=== PATIENT | male | born 1965 | race Two or more races ===

== ENCOUNTER 2017-12-04 15:56 | Emergency (ER) | payer OTHER ==
[2017-12-04 16:04] VITALS: BP 153/88; PULSE 81; TEMP 98; BMI 38.6
--- NOTE | 2017-12-04 16:07 | PDOC ---
Rapid Medical Evaluation Chief Complaint: Injury Time Seen by Provider: 12/04/17 16:05 Medical Evaluation: Allergies Allergy/AdvReac Type Severity Reaction Status Date / Time Penicillins Allergy Verified 12/04/17 15:59 Vital Signs Temp Pulse Resp BP Pulse Ox 98.0 F 81 18 153/88 100 12/04/17 15:59 12/04/17 15:59 12/04/17 15:59 12/04/17 15:59 12/04/17 15:59 12/04/17 16:06 Pt presents to the ED with complaints of: SLIP AND FELL AT WORK, NO HEAD INJURY , ambulatory at the scene, + mild left hip pain On brief exam: large contusion/hematoma over left meeks. FROM of left foot Pt ordered for: tib/fib xray Pt to proceed to the ED Discharge Disposition - Diagnosis Left leg pain - Referrals - Patient Instructions - Post Discharge Activity
[2017-12-04] MEDS ORDERED: BACITRACIN 15 GM TUBE TOPICAL OINTMENT ONE (17:39)
[2017-12-04] MEDS ORDERED: KETOROLAC TROMETHAMINE 60 MG/2 ML VIAL IM ONE (17:39)
--- NOTE | 2017-12-04 17:39 | PDOC ---
History of Present Illness - General Chief Complaint: Injury Stated Complaint: LT LEG INJURY Time Seen by Provider: 12/04/17 16:05 History Source: Patient Exam Limitations: No Limitations - History of Present Illness Initial Comments: CHIEF COMPLAINT: 52 y/o afebrile male with no significant PMH c/o left leg and hip pain s/p slip and fall. HISTORY OF PRESENT ILLNESS: The patient was at work when he slipped on stairs and fell, his left meeks hitting the sharp bottom of the door frame. He states he was able to walk but with pain. He denies head trauma, neck pain, LOC, CP, SOB, dizziness, n/v/d, numbness/tingling in LEs. Vital signs on arrival are within normal limits. REVIEW OF SYSTEMS: GENERAL/CONSTITUTIONAL: No fever/chills. No weakness. No weight change. MUSCULOSKELETAL: +left lower leg and left hip pain. No neck or back pain. SKIN: No rash or easy bruising. NEUROLOGIC: No headache, vertigo, loss of consciousness, or loss of sensation. PHYSICAL EXAM: VITAL_SIGNS: within normal limits GENERAL_APPEARANCE: alert, cooperative, mild obvious discomfort. MENTAL_STATUS: speech clear, oriented X 3, responds appropriately to questions. NEURO: motor intact and sensory intact in injured extremity. EXTREMITIES: Distal anterior left tibia with 2 open abrasions, each 2cm x 1cm. Moderate swelling and TTP of left anterior tibia. Full ROM of left toes, ankle and knee. No pain with palpation of left knee or tibial plataeu. Minimal TTP of left hip joint. SKIN: warm, dry, good color. Past History - Past Medical History Allergies/Adverse Reactions: Allergies Allergy/AdvReac Type Severity Reaction Status Date / Time Penicillins Allergy Verified 12/04/17 15:59 Home Medications: Ambulatory Orders Ibuprofen 800 mg PO Q8H #20 tablet 12/04/17 Asthma: Yes COPD: No - Suicide/Smoking/Psychosocial Hx Smoking History: Never smoked Have you smoked in the past 12 months: No Information on smoking cessation initiated: No Hx Alcohol Use: No Drug/Substance Use Hx: No Substance Use Type: None *Physical Exam - Vital Signs Last Vital Signs Temp Pulse Resp BP Pulse Ox 98.0 F 81 18 153/88 100 12/04/17 15:59 12/04/17 15:59 12/04/17 15:59 12/04/17 15:59 12/04/17 15:59 Medical Decision Making - Medical Decision Making A/P: 52 y/o male with left leg injury s/p slip and fall. Plan is as follows: 1. IM Toradol 2. Xray left tib/fib Xray left tib/fib IMPRESSION: No evidence of acute fracture or dislocation in the left tibia or fibula. Prominent ventral soft tissues overlying the mid tibial shaft of indeterminant etiology. CLeaned abrasions, applied bacitracin and covered. Gave the patient all of his results. Provided with crutches for support, although the patient is able to bear weight on affected extremity. Suggested he take 800mg of Ibuprofen Q8H at home, ice affected area and f/u with his doctor. INstructed him to return to the ER with any worsening or concerning symptoms. The patient verbalizes understanding of all instructions, has no further questions and is awaiting discharge. *DC/Admit/Observation/Transfer Diagnosis at time of Disposition: Left leg pain, Multiple abrasions Fall Qualifiers: Encounter type: initial encounter Qualified Code(s): W19.XXXA - Unspecified fall, initial encounter - Discharge Dispostion Disposition: HOME Condition at time of disposition: Good - Prescriptions Prescriptions: Ibuprofen 800 mg PO Q8H #20 tablet - Referrals - Patient Instructions Printed Discharge Instructions: How To Perform RICE (Rest, Ice, Compress, Elevate), DI for Abrasion, DI for Leg Pain, How to Use Crutches Additional Instructions: Discharge Instructions: -Keep wound clean and covered -Use crutches for support if needed -Take Ibuprofen as prescribed with food for pain -Follow RICE instructions -Follow up with your doctor within 1 week -Return to the ER with any worsening or concerning symptoms. - Post Discharge Activity Forms/Work/School Notes: Back to Work
[2017-12-04] MEDS ORDERED: KETOROLAC TROMETHAMINE 60 MG/2 ML VIAL ONE (17:50)
== END 2017-12-04 18:05 | disposition home or self-care (01) ==
LOC: JERFT 15:56
PROC: 3E0233Z Introduction of Anti-inflammatory into Muscle, Percutaneous Approach (ICD-10-PCS; principal; 2017-12-04)
DX: S89.82XA Other specified injuries of left lower leg, initial encounter (principal); W10.8XXA Fall (on) (from) other stairs and steps, initial encounter; Y93.H3 Activity, building and construction; Y92.69 Other specified industrial and construction area as the place of occurrence of the external cause; Y99.0 Civilian activity done for income or pay
CPT/HCPCS: 73590-TC-LT; 99282-25

== ENCOUNTER 2023-11-11 09:39 | Observation (INO) | payer OTHER ==
[2023-11-11] MEDS ORDERED: ASPIRIN 325 MG ENTERIC COATED TABLET (FP) PO ONE (10:03)
[2023-11-11] MEDS ORDERED: ONDANSETRON *ODT* 4 MG TABLET SL ONE (10:09)
[2023-11-11] MEDS ORDERED: ASPIRIN 325 MG ENTERIC COATED TABLET (FP) ONE (10:17)
[2023-11-11] MEDS ORDERED: ONDANSETRON *ODT* 4 MG TABLET ONE (10:17)
[2023-11-11 10:36] LABS: BASO % 0.5 % (0-2.0); EOS % 1.4 % (0-4.5); HEMATOCRIT 45.3 % (35.4-49); HEMOGLOBIN 15.3 GM/dL (11.7-16.9); LYMPH % 10.5 % (8-40); MCH 29.9 pg (25.7-33.7); MCHC 33.8 g/dl (32.0-35.9); MEAN CELL VOLUME 88.4 fl (80-96); MEAN PLT VOLUME 8.7 fl (7.5-11.1); MONO % 4.1 % (3.8-10.2); NEUT % 83.5 % (42.8-82.8); PLATELET COUNT 200 10^3/uL (134-434); RBC 5.12 M/mm3 (4.00-5.60); RDW 13.6 % (11.9-15.9); WHITE BLOOD COUNT 11.4 K/mm3 (4.0-10.0)
[2023-11-11 10:41] LABS: INR 1.07 (0.83-1.09); PROTHROMBIN TIME (PATIENT) 12.4 SEC (9.7-13.0)
[2023-11-11 10:42] VITALS: TEMP 98; BMI 38.0
[2023-11-11 10:43] LABS: ACTIVATED PTT 34.2 SECONDS (25.2-36.5)
[2023-11-11 10:55] LABS: POTASSIUM 4.4 mmol/L (3.5-5.1)
[2023-11-11 10:59] LABS: BLOOD UREA NITROGEN 14.7 mg/dL (7-18); CALCIUM 9.7 mg/dL (8.5-10.1)
[2023-11-11 11:02] LABS: CREATININE 0.8 mg/dL (0.55-1.3)
[2023-11-11 11:04] LABS: BILIRUBIN,TOTAL 1.1 mg/dL (0.2-1); TOT PROT 7.2 g/dl (6.4-8.2)
[2023-11-11 11:07] LABS: N-TERMINAL BNP 49.8 pg/ml (5-125)
[2023-11-11] MEDS ORDERED: ALBUTEROL SO4 2.5/IPRATROPIUM 0.5 INH SOL 3 ML VIAL.NEB. NEB ONE ×2 (14:00→14:14)
[2023-11-11] MEDS ORDERED: NITROGLYCERIN SUBLINGUAL 1/150 0.4 MG TAB ONE (17:24)
[2023-11-11] MEDS: NITROGLYCERIN SUBLINGUAL 1/150 0.4 MG TAB SL PRN ×2 (17:45→17:55)
[2023-11-11 19:32] VITALS: BP 149/90; PULSE 72; RESP 18
[2023-11-11] MEDS ORDERED: ATORVASTATIN CA 80 MG TABLET (FP) PO SCH (22:00)
[2023-11-11] MEDS ORDERED: LOSARTAN POTASSIUM 50 MG TABLET PO SCH (22:00)
[2023-11-11] MEDS ORDERED: ATORVASTATIN CA 40 MG TABLET (FP) ONE (22:26)
[2023-11-11] MEDS ORDERED: LOSARTAN POTASSIUM 50 MG TABLET ONE (22:26)
[2023-11-12] MEDS ORDERED: ENOXAPARIN NA (PORCINE) 40 MG/0.4 ML DISP.SYRIN SQ SCH (10:00)
[2023-11-12] MEDS ORDERED: ASPIRIN 81 MG CHEWABLE TABLETS PO SCH (10:00)
== END 2023-11-11 22:58 | disposition left against medical advice (07) ==
LOC: JER 09:39 → JERBED 14:52
PROVIDERS: ADMIT Internal Medicine
PROC: 3E0F7GC Introduction of Other Therapeutic Substance into Respiratory Tract, Via Natural or Artificial Opening (ICD-10-PCS; principal; 2023-11-11)
DX: R07.9 Chest pain, unspecified (principal); M79.602 Pain in left arm; G56.00 Carpal tunnel syndrome, unspecified upper limb; J45.998 Other asthma; I20.0 Unstable angina; I10 Essential (primary) hypertension; R74.01 Elevation of levels of liver transaminase levels; M17.11 Unilateral primary osteoarthritis, right knee; E78.5 Hyperlipidemia, unspecified; G47.33 Obstructive sleep apnea (adult) (pediatric)
CPT/HCPCS: 0241U-QW; 36415; 70450-TC; 71046-TC-FY; 71275-TC; 74174-TC; 76705-TC; 80053; 80061; 83036; 83880; 84484; 85025; 85610; 85730; 93005; 93010; 99285-25; G0378; Q0162; Q9967